=== PATIENT | female | born 1945 | race Caucasian/White ===

== ENCOUNTER → 2016-10-22 | Outpatient (CLI) | payer MEDICARE ==
[~2016-10-22] VITALS: Ht 157.5 cm; Wt 90.7 kg
[~2016-10-22] MED LIST: ASPI-586 PO; ATOR10TA66 PO; GABA-486 PO; HYDR-3812 PO; LEVO125T6 PO; LIDOCAINE 1% INJ 20 ML (XYLOCAINE) VIAL ONE; RANI150T90 PO
[2016-10-22 13:26] VITALS: BP 130/80
[2016-10-22 13:40] VITALS: BP 128/80
--- NOTE | 2016-10-22 14:43 | Diagnostic Imaging Report ---
EXAMINATION: US-guided fine needle biopsy-thyroid. INDICATION: Dominant left thyroid nodule. CONSENT: Informed consent was obtained from the patient. The risks, benefits, potential complications and alternatives were reviewed and all questions answered to the patient's satisfaction. FINDINGS: 1.3 CM hypoechoic the left thyroid nodule. PROCEDURE: After sterile preparation and draping, 1% lidocaine was utilized for local anesthesia. A 25-gauge hypodermic needle is introduced into the left thyroid nodule under live ultrasound guidance. After confirming adequate positioning with saved ultrasound images, multiple passes of fine needle aspiration is performed and repeated 5 times. The patient tolerated the procedure well with no immediate complications. IMPRESSION: Successful US-guided fine needle aspiration biopsy of left thyroid nodule. Dictated by: Dictated on workstation # [id number]
== END ==
LOC: RAD 12:24
PROVIDERS: ATTEND Surgery
DX: E04.1 Nontoxic single thyroid nodule (principal)
CPT/HCPCS: 76942; 88305

== ENCOUNTER 2016-11-03 09:33 | Outpatient (CLI) | payer MEDICARE ==
[~2016-11-03] VITALS: Ht 157.5 cm; Wt 90.7 kg
[2016-11-03] MEDS ORDERED: GABA-486 PO (16:11)
[2016-11-03] MEDS ORDERED: RANI150T90 PO (16:11)
[2016-11-03] MEDS ORDERED: ATOR10TA66 PO (16:11)
[2016-11-03] MEDS ORDERED: ASPI-586 PO (16:11)
== END 2016-11-03 16:14 ==
LOC: PREOP 09:33
PROVIDERS: ATTEND Surgery
DX: Z01.818 Encounter for other preprocedural examination (principal); E04.1 Nontoxic single thyroid nodule

== ENCOUNTER 2016-11-05 05:51 | Day surgery (SDC) | payer MEDICARE ==
[~2016-11-05] VITALS: Ht 157.5 cm; Wt 90.7 kg
[~2016-11-05 05:51] MED LIST changes: -HYDR-3812 PO; -LEVO125T6 PO; -LIDOCAINE 1% INJ 20 ML (XYLOCAINE) VIAL ONE
--- OUTSIDE RECORDS SUMMARY | 2016-11-05 05:55 | XMS REPORT | Continuity of Care Document ---
Author Author [facility] Organization [facility] Address Unknown Phone Unavailable Care Team Providers Care Salvage Laborer Name Role Phone SUHAS DUMONT DO PCP Insurance Providers Payer Name Policy Number Subscriber Name Relationship Mcradv [employer] [id number] [place] [address] Self / Same As Patient Advance Directives Directive Response Recorded Date/Time Advance Directives No 11/03/16 10:58am Health Care Power of Doping Supervisor No 11/03/16 10:58am Organ Donor Yes 11/03/16 10:58am Resuscitation Status Full Code 11/03/16 10:58am Problems No problem information available. Medications Current Home Medications Medication Dose Units Route Directions Days/Qty Instructions Start Date Ranitidine Hcl (Ranitidine) 150 Mg 150 Mg Oral Twice A Day 11/03/16 Atorvastatin Calcium 10 Mg 10 Mg Oral Bedtime 11/03/16 Gabapentin 100 Mg 100 Mg Oral Three Times A Day 11/03/16 Aspirin 81 Mg 81 Mg Oral Daily 11/03/16 Social History Social History Problem Response Recorded Date/Time Alcohol Use Rarely Uses 11/03/2016 10:58am Recreational Drug Use No 11/03/2016 10:58am Recent Foreign Travel No 11/03/2016 11:00am Recent Infectious Disease Exposure No 11/03/2016 11:00am Smoking Status Former Smoker 11/03/2016 10:58am Recent Hopitalizations No 11/03/2016 10:58am Query Response Start Date Stop Date Smoking Status Former Smoker Hospital Discharge Instructions No hospital discharge instructions. Plan of Care Discharge Date 11/03/16 4:14pm Prescriptions See Medication Section Functional Status No functional status results. Allergies, Adverse Reactions, Alerts Allergen Type Severity Reaction Status Last Updated Penicillins ([id number]) Allergy Unknown RASH Active 11/03/16 Sulfa (Sulfonamide Antibiotics) ([id number]) Allergy Unknown NAUSEA, RASH Active 11/03/16 Allopurinol Allergy Unknown RASH Active 11/03/16 amylase Allergy Unknown NAUSEA Active 11/03/16 lipase Allergy Unknown NAUSEA Active 11/03/16 protease Allergy Unknown NAUSEA Active 11/03/16 propoxyphene ([id number]) Allergy Unknown JITTERINESS Active 11/03/16 Acetaminophen Allergy Unknown JITTERINESS Active 11/03/16 Doxycycline Allergy Unknown NAUSEA Active 11/03/16 Levofloxacin Allergy Unknown IV SITE REACTION Active 11/03/16 Immunizations No immunization records. Vital Signs Acute Vital Signs Vital Response Date/Time Temperature (Fahrenheit) 98.2 degrees F (97.6 - 99.5) 10/22/2016 1:26pm Temperature (Calculated Celsius) 36.06338 degrees C (36.4 - 37.5) 10/22/2016 1:26pm Temperature Source Temporal 10/22/2016 1:26pm Pulse Rate (adult) 68 bpm (60 - 90) 10/22/2016 1:40pm Respiratory Rate 18 bpm (12 - 24) 10/22/2016 1:40pm O2 Sat by Pulse Oximetry 97 % (88 - 100) 10/22/2016 1:40pm Blood Pressure 128/80 mm Hg 10/22/2016 1:40pm Blood Pressure Mean 97 mm Hg 10/22/2016 1:26pm Pain Numeric Pain Scale 0-No Pain 10/22/2016 1:26pm Height (Feet) 5 feet 11/03/2016 10:58am Height (Inches) 2.00 inches 11/03/2016 10:58am Height (Calculated Centimeters) 157.235968 cm 11/03/2016 10:58am Weight (Pounds) 200 pounds 11/03/2016 10:58am Weight (Ounces) 0.0 oz 11/03/2016 10:58am Weight (Calculated Grams) 47069.48 gm 11/03/2016 10:58am Weight (Calculated Kilograms) 90.203174 kilograms 11/03/2016 10:58am Calculated BMI 36.6 11/03/2016 10:58am Results No known relevant diagnostic tests, laboratory data and/or discharge summary. Procedures Procedure Status Date Provider(s) FNA W/IMAGE Completed 10/22/16 FIDEL VERA MD Encounters Encounter Location Arrival/Admit Date Discharge/Depart Date Attending Provider Departed Clinic [facility] 11/03/16 9:33am 11/03/16 4: 14pm DAVON MOORE MD Registered Clinic [facility] 10/22/16 12:24pm DAVON MOORE MD
--- OUTSIDE RECORDS SUMMARY | 2016-11-05 05:56 | XMS REPORT | Continuity of Care Document ---
Author Author [facility] Organization [facility] Address Unknown Phone Unavailable Care Team Providers Care Management Coordinator Name Role Phone SUHAS DUMONT DO PCP Insurance Providers Payer Name Policy Number Subscriber Name Relationship Mcradv Coventry [id number] [place] [address] Self / Same As Patient Advance Directives Directive Response Recorded Date/Time Advance Directives No 11/03/16 10:58am Health Care Power of Leather Sponger No 11/03/16 10:58am Organ Donor Yes 11/03/16 [...] Type Severity Reaction Status Last Updated Penicillins ([id number]) Allergy Unknown RASH Active 11/03/16 Sulfa (Sulfonamide Antibiotics) ([id number]) Allergy Unknown NAUSEA, RASH Active 11/03/16 Allopurinol Allergy Unknown RASH Active 11/03/16 amylase Allergy Unknown NAUSEA Active 11/03/16 lipase Allergy Unknown NAUSEA Active 11/03/16 protease Allergy Unknown NAUSEA Active 11/03/16 propoxyphene ([id number]) Allergy Unknown JITTERINESS Active 11/03/16 Acetaminophen Allergy Unknown JITTERINESS Active 11/03/16 Doxycycline Allergy Unknown NAUSEA Active 11/03/16 Levofloxacin Allergy Unknown IV SITE REACTION Active 11/03/16 Immunizations No immunization records. Vital Signs Acute Vital Signs Vital Response Date/Time Temperature (Fahrenheit) 98.2 degrees F (97.6 - 99.5) 10/22/2016 1:26pm Temperature (Calculated Celsius) 36.30694 degrees C (36.4 - 37.5) 10/22/2016 1:26pm [...] 2.00 inches 11/03/2016 10:58am Height (Calculated Centimeters) 157.459651 cm 11/03/2016 10:58am Weight (Pounds) 200 pounds 11/03/2016 10:58am Weight (Ounces) 0.0 oz 11/03/2016 10:58am Weight (Calculated Grams) 03207.48 gm 11/03/2016 10:58am Weight (Calculated Kilograms) 90.813307 kilograms 11/03/2016 10:58am Calculated BMI 36.6 11/03/2016 10:58am Results No known relevant diagnostic tests, laboratory data and/or discharge summary. Procedures Procedure Status Date Provider(s) FNA W/IMAGE Completed 10/22/16 FIDEL VERA MD Encounters Encounter Location Arrival/Admit Date Discharge/Depart Date Attending Provider Departed Clinic [facility] 11/03/16 9:33am 11/03/16 4: 14pm DAVON MOORE MD Registered Clinic [facility] 10/22/16 12:24pm DAVON MOORE MD
[2016-11-05 06:55] LABS: MEAN PLATELET VOLUME 9.6 FL (7.4-10.4); RED BLOOD COUNT 4.47 10^6/uL (4.35-5.85); RED CELL DISTRIBUTION WIDTH 12.7 % (10.0-14.5); WHITE BLOOD COUNT 7.9 10^3/uL (4.3-11.0)
[2016-11-05] MEDS ORDERED: FAMOTIDINE 20MG/2ML IV (PEPCID) IV ONE (07:00)
[2016-11-05] MEDS ORDERED: ONDANSETRON 4 MG/2 ML (SDV) Z0FRAN ONE (07:05)
[2016-11-05] MEDS ORDERED: proPOfol 200 MG/20 ML (DIPRIVAN) VIAL IV ONE (07:05)
[2016-11-05] MEDS ORDERED: DEXAMETHASONE PF 10 MG/ML (DECADRON) VIAL ONE (07:05)
[2016-11-05] MEDS ORDERED: LIDOCAINE PF 2% 10 ML (XYLOCAINE) AMP ONE (07:05)
[2016-11-05] MEDS ORDERED: MIDAZOLAM 2 MG/2 ML (VERSED) VIAL ONE (07:06)
[2016-11-05] MEDS ORDERED: fentaNYL INJECTION 100 MCG/2 ML AMP ONE ×2 (07:06→08:48)
[2016-11-05 07:08] LABS: ANION GAP 14 MMOL/L (5-14); BLOOD UREA NITROGEN 15 MG/DL (7-18); BUN/CREATININE RATIO 21; CALCIUM 9.7 MG/DL (8.5-10.1); CARBON DIOXIDE 23 MMOL/L (21-32); CHLORIDE 105 MMOL/L (98-107); CREATININE SERUM 0.73 MG/DL (0.60-1.30); GFR ESTIMATED > 60; GLUCOSE 107 MG/DL (70-105); SODIUM 142 MMOL/L (135-145)
[2016-11-05] MEDS: LACTATED RINGERS 1,000 ML IV PRN ×2 (07:12→08:50)
[2016-11-05] MEDS ORDERED: ceFAZolin 2 GM/NS 50 ML IV ONE (07:15)
[2016-11-05] MEDS ORDERED: SUCCINYLCHOLINE INJ 100 MG/5 ML SYR ONE (07:20)
[2016-11-05] MEDS ORDERED: LACTATED RINGERS 1,000 ML IV ONE ×2 (07:20→09:46)
[2016-11-05] MEDS ORDERED: BUP/EPI 0.25% 1:200,000 (MARCAINE) 30 ML VIAL ONE (07:23)
[2016-11-05] MEDS ORDERED: THROMBIN SPRAY KIT 5,000 UNIT VIAL ONE (07:23)
[2016-11-05 07:35] VITALS: BP 123/84
--- NOTE | 2016-11-05 07:45 | Progress Note-Pre Operative ---
Pre-Operative Progress Note H&P Reviewed The H&P was reviewed, patient examined and no changes noted. Date H&P Reviewed: Nov 05, 2016 Time H&P Reviewed: 07:45 Pre-Operative Diagnosis: Bilateral Thyroid Nodules DAVON MOORE MD Nov 05, 2016 7:45 am
[2016-11-05] MEDS ORDERED: SEVOFLURANE (ULTANE) 15 ML INHAL SOLN ONE ×2 (09:33→09:47)
[2016-11-05] MEDS ORDERED: LACTATED RINGERS 1,000 ML IV SCH (09:52)
--- NOTE | 2016-11-05 09:52 | Progress Note-Post Operative ---
Post-Operative Progess Note Pre-Operative Diagnosis Bilateral Thyroid Nodules Post-Operative Diagnosis Same Post-Op Procedure Note Date of Procedure: Nov 05, 2016 Name of Procedure: Total thyroidectomy Intraoperative nerve monitoring Anesthesia Type Gen. Estimated blood loss (mL): 25 mL Specimen(s) collected Both lobes of thyroid sent separately DAVON MOORE MD Nov 05, 2016 9:51 am
[2016-11-05] MEDS ORDERED: HYDROcodone/APAP 5 MG/325 MG (LORTAB) TAB PO PRN (10:00)
[2016-11-05] MEDS ORDERED: ONDANSETRON 4 MG/2 ML (SDV) Z0FRAN IVP PRN (10:00)
[2016-11-05] MEDS: morphine INJ 10 MG/ML 1ML (SYR OR VIAL) IV PRN ×3 (10:14→10:28)
[2016-11-05] MEDS ORDERED: PROMETHAZINE INJ 25 MG/ML (PHENERGAN) AMP IV PRN (10:15)
[2016-11-05] MEDS ORDERED: ONDANSETRON 4 MG/2 ML (SDV) Z0FRAN IV PRN (10:15)
[2016-11-05] MEDS ORDERED: fentaNYL INJECTION 100 MCG/2 ML AMP IV PRN (10:15)
[2016-11-05] MEDS ORDERED: HYDR-3812 PO (10:17)
[2016-11-05] MEDS ORDERED: LEVO125T6 PO (10:18)
--- NOTE | 2016-11-05 10:19 | Discharge Inst-Simple/Standard ---
Discharge Inst-Standard Discharge Medications New, Converted or Re-Newed RX: RX on Chart Patient Instructions/Follow Up Plan of Care/Instructions/FU: dRESSINGS OFF IN AM. INCENTIVE SPIROMETRY.F/U IN 3 WEEKS Activity as Tolerated: Yes Discharge Diet: No Restrictions DAVON MOORE MD Nov 05, 2016 10:19
[2016-11-05] MEDS: fentaNYL INJECTION 100 MCG/2 ML AMP IVP PRN ×2 (11:48→15:38)
[2016-11-05] MEDS ORDERED: FLU TRIvalent (5 YOA+) 2016-17 (AFLURIA) 0.5 ML IM ONE (13:00)
--- NOTE | 2016-11-05 13:06 | OPERATIVE REPORT ---
PROCEDURE PHYSICIAN: DAVON MOORE DATE OF PROCEDURE: 11/05/2016 PREOPERATIVE DIAGNOSIS: Multinodular goiter. POSTOPERATIVE DIAGNOSIS: Multinodular goiter. OPERATION: 1. Total thyroidectomy. 2. Intraoperative nerve monitoring. SURGEON: Colby. ANESTHESIA: General anesthesia. BLOOD LOSS: 25 mL. FLUIDS: 1300 mL crystalloids. TYPE OF WOUND: Type I (clean wound). INDICATION FOR THE PROCEDURE: This lady presented with symptomatic bilateral thyroid nodules requiring histologic confirmation. Therefore, it was felt reasonable to proceed with total thyroidectomy with monitoring of the recurrent laryngeal nerves. Informed consent was obtained after reviewing the operative details and complications of wound infection and hematoma, hypocalcemia and transient hoarseness of voice. DESCRIPTION OF PROCEDURE: She was placed supine on the operative table and general anesthesia induced using an endotracheal tube associated with nerve monitoring electrodes. 2 grams of Ancef were administered intravenously as prophylaxis against wound infection. Sequential compression devices were placed around her legs, to minimize the risk of venous thrombus. Her neck and upper chest were prepared and draped in the usual sterile manner. Preemptive analgesia was established using 0.25% Marcaine with epinephrine. A 5 cm transverse incision was made along the skin crease of the neck and platysma incised transversely. Flaps were raised superiorly to the level of the thyroid cartilage and inferiorly to the sternal notch. Cervical fascia was incised vertically and strap muscles were retracted laterally. I began the dissection on the left side. The lobe was retracted medially and a distinct middle thyroid vein identified. It was controlled between Ligaclips. Superior thyroid artery was then ligated between 2-0 silk sutures, reinforced with a Ligaclip. Recurrent laryngeal nerve was identified by visual inspection and intermittent nerve stimulation technique. It was kept out of harm's way. I was able to identify one parathyroid gland, possibly superior in location and preserve it, along with its blood supply. The isthmus was then divided and the left lobe sent separately for histologic examination. On the right side a similar dissection was performed. Recurrent laryngeal nerve was found in its conventional position and protected using visual inspection and intermittent nerve stimulation technique. Both parathyroids were preserved along with their blood supply. Superior thyroid artery was controlled between 2-0 silk sutures and the lobe was sent off for histologic examination. We had the anesthesiologist conduct Valsalva maneuver, looking for any venous bleeding. There was not any. Gelfoam soaked in thrombin solution was placed along the tracheoesophageal groove to optimize hemostasis. Neck was then flexed in preparation for closure. Cervical fascia was approximated with 3-0 Vicryl using the same material. The skin was closed using 4-0 Vicryl, in a subcuticular fashion. She tolerated the procedure well and was extubated in the operating room and taken to the recovery room in a stable condition. [place], sponges, and instruments were correct at the end of the operation. Job ID: [id number] Dictated Date: 11/05/2016 09:48:44 Flight Controls Engineer Date: 11/05/2016 12:58:12 / kumar JANSEN
[2016-11-05] MEDS: GABAPENTIN 100 MG (NEURONTIN) CAP PO SCH ×2 (16:44→20:12)
[2016-11-05 19:23] VITALS: BP 122/60
[2016-11-05] MEDS: FAMOTIDINE 20 MG (PEPCID) TABLET PO SCH (20:12)
[2016-11-05] MEDS: CALCIUM CARBONATE 600 MG (CALCARB) TAB PO SCH (20:12)
[2016-11-05 20:32] VITALS: BP 122/60
[2016-11-05] MEDS ORDERED: CALCIUM CARBONATE 600 MG (CALCARB) TAB PO ONE (21:00)
[2016-11-05] MEDS ORDERED: raNItidine (ZANTAC) 150 MG TAB NON-FORMULARY PO SCH (21:00)
[2016-11-05] MEDS ORDERED: ATORVASTATIN 10 MG (LIPITOR) TABLET PO SCH (21:00)
[2016-11-06 00:40] VITALS: BP 112/75
[2016-11-06 04:45] VITALS: BP 132/63
[2016-11-06] MEDS ORDERED: LEVOTHYROXINE 125 MCG (LEVOTHROID) TABLET PO NR (06:00)
[2016-11-06] MEDS: CALCIUM CARBONATE 600 MG (CALCARB) TAB PO SCH (06:09)
[2016-11-06 06:31] LABS: ANION GAP 13 MMOL/L (5-14); BLOOD UREA NITROGEN 11 MG/DL (7-18); BUN/CREATININE RATIO 16; CALCIUM 8.6 MG/DL (8.5-10.1); CARBON DIOXIDE 24 MMOL/L (21-32); CHLORIDE 104 MMOL/L (98-107); GFR ESTIMATED > 60; GLUCOSE 127 MG/DL (70-105); POTASSIUM 4.4 MMOL/L (3.6-5.0); SODIUM 141 MMOL/L (135-145)
[2016-11-06 08:00] VITALS: BP 122/60
[2016-11-06] MEDS: GABAPENTIN 100 MG (NEURONTIN) CAP PO SCH (09:03)
[2016-11-06] MEDS: FAMOTIDINE 20 MG (PEPCID) TABLET PO SCH (09:03)
--- NOTE | 2016-11-06 09:48 | Progress Note-Standard ---
Standard Progress Note Progress Notes/Assess & Plan Progress/Assessment & Plan 11/06/16: Doing well Vocal cord function normal. CAlcium N. Home. Final Diagnosis Multinodular Goiter DAVON MOORE MD Nov 06, 2016 09:48
[2016-11-06 11:56] VITALS: BP 122/60
== END 2016-11-06 11:25 | disposition home or self-care (01) ==
LOC: SDC 05:51 → 4TH 11:10 → SDC 11-06 11:25
PROVIDERS: ATTEND Surgery
DX: E04.2 Nontoxic multinodular goiter (principal); Z11.2 Encounter for screening for other bacterial diseases
CPT/HCPCS: 36415; 80048; 85027; 87081; 88307; 94664

== ENCOUNTER → 2016-11-27 | Outpatient (CLI) | payer MEDICARE ==
[~2016-11-27] MED LIST changes: +HYDR-3812 PO; +LEVO125T6 PO
== END ==
LOC: LAB 14:01
PROVIDERS: ATTEND Surgery
DX: E05.90 Thyrotoxicosis, unspecified without thyrotoxic crisis or storm (principal)
CPT/HCPCS: 36415; 84436; 84443